=== PATIENT | female | born 1980 | race Caucasian/White ===

== ENCOUNTER 2022-07-31 18:03 | Emergency (ER) | payer OTHER ==
[~2022-07-31] VITALS: Ht 162.6 cm; Wt 54.0 kg
[2022-07-31] MEDS ORDERED: SODIUM CHLORIDE 0.9% 1,000 ML IV ONE (18:15)
[2022-07-31 18:30] LABS: BASOPHILS % 1.1 % (0.0-2.0); EOSINOPHILS % 0.1 % (0.0-5.0); HEMATOCRIT. 37.9 % (36.0-48.0); LYMPHOCYTES % 20.6 % (20.0-50.0); MEAN CORPUSCULAR HEMOGLOBIN 38.7 pg (28.0-32.0); MEAN CORPUSCULAR VOLUME 113.1 fL (81.0-99.0); MEAN PLATELET VOLUME 7.9 fl (7.4-10.4); MONOCYTES % 10.3 % (2.0-8.0); NEUTROPHILS % 67.9 % (40.0-76.0); PLATELET 105 x1000/uL (130-400); RED BLOOD CELL COUNT 3.35 mill/uL (4.2-5.4); RED CELL DISTRIBUTION WIDTH 14.4 % (11.6-14.6)
[2022-07-31 18:39] LABS: CHLORIDE 99 mEq/L (98-107)
[2022-07-31 18:45] LABS: HCG SCREEN NEGATIVE
[2022-07-31 18:51] LABS: ETHANOL BLOOD 277 mg/dL
[2022-07-31 19:49] LABS: PLATELET ESTIMATE DECREASED
[2022-07-31 20:00] VITALS: BP 125/89
[2022-07-31] MEDS ORDERED: THIA50TA12 MT (20:39)
[2022-07-31] MEDS ORDERED: MULT-1146 MT (20:39)
[2022-07-31] MEDS ORDERED: THIAMINE HCL 100MG TABLET PO ONE (20:45)
== END 2022-07-31 21:03 | disposition home or self-care (01) ==
LOC: ER 18:03
DX: F10.229 Alcohol dependence with intoxication, unspecified (principal); E86.0 Dehydration; R55 Syncope and collapse; E89.0 Postprocedural hypothyroidism; K70.10 Alcoholic hepatitis without ascites; Y90.8 Blood alcohol level of 240 mg/100 ml or more; Z85.79 Personal history of other malignant neoplasms of lymphoid, hematopoietic and related tissues
CPT/HCPCS: 36415; 80053; 80307; 80320; 80329; 82962; 84443; 84703; 85025; 93005; 99284; J7030; G0480